=== PATIENT | female | born 1990 | race Caucasian/White ===

== ENCOUNTER 2021-01-01 04:36 | Inpatient (IN) ==
[2021-01-01] MEDS ORDERED: Buffered Lidocaine 1% SYRIN 1 ml INTRADERM ONE (05:09)
[2021-01-01] MEDS ORDERED: Lactated Ringers 1000 ml BAG 1,000 ML IV ONE ×2 (05:09→12:59)
[2021-01-01 05:54] LABS: Urine Benzodiazepine Screen None Detected (None Detect); Urine Cannabinoids Screen None Detected (None Detect); Urine Opiates Screen None Detected (None Detect)
[2021-01-01] MEDS ORDERED: Lactated Ringers 1000 ml BAG 1,000 ML IV SCH ×3 (06:00→21:00)
[2021-01-01 06:07] LABS: ABS Basophils 0.1 10^3/ul (0-0.2); ABS Lymphocytes 1.7 10^3/ul (1.0-4.8); ABS Monocytes 0.8 10^3/ul (0-0.8); ABS Neutrophils 17.1 10^3/ul (1.5-7.7); Eosinophil % 0.2 %; Hematocrit 42 % (35-47); Hemoglobin 14.5 g/dL (12.0-16.0); Lymphocyte % 8.9 %; Mean Corpuscular HGB Conc 35 g/dL (31-36); Mean Corpuscular Hemoglobin 30 pg (27-31); Mean Corpuscular Volume 88 fL (80-97); Mean Platelet Volume 10.8 fL (7.4-10.4); Platelet Count 197 10^3/uL (150-450); Red Blood Count 4.78 10^6 /uL (3.70-4.87); Red Cell Distribution Width 13 % (10-15); White Blood Count 19.7 10^3/uL (3.5-10.8)
[2021-01-01 06:24] LABS: Albumin/Globulin Ratio 1.3 (1-3); Calcium 9.4 mg/dL (8.6-10.3); EGFR African American 137.7 (>60); EGFR Non-African American 113.8 (>60); Globulin 3.2 g/dL (2-4); Potassium 3.7 mmol/L (3.5-5.0); Total Bilirubin 0.3 mg/dL (0.2-1.0); Total Protein 7.2 g/dL (6.4-8.9)
[2021-01-01] MEDS ORDERED: Morphine 10 MG/ML VIAL (1 ml) IV ONE (08:56)
[2021-01-01] MEDS ORDERED: Promethazine INJ(RESTRICTED) 25 MG/ML 1 ml VIAL IV ONE (08:57)
[2021-01-01] MEDS ORDERED: OBEPIDURAL 250 ML EPIDURAL ONE (12:15)
[2021-01-01] MEDS ORDERED: Bupivacaine 0.25% SDV PF 10 ML VIAL INJ ONE (12:21)
[2021-01-01] MEDS ORDERED: Phenylephrine 40 mcg/mL 10mL (400mcg) SYRINGE IV PUSH PRN ×2 (12:59)
[2021-01-01] MEDS ORDERED: EPHEDrine (Pressors) 50 MG/ML VIAL IV PUSH PRN ×2 (12:59)
[2021-01-01] MEDS ORDERED: Sodium Citrate/Citric Acid LIQ 15 ML UDC PO PRN (12:59)
[2021-01-01] MEDS ORDERED: OBEPIDURAL 250 ML EPIDURAL SCH (13:00)
[2021-01-01] MEDS ORDERED: Oxytocin in LR 20 UNITS/1,000 ML BAG IVPB ONE (15:57)
[2021-01-01] MEDS ORDERED: Oxytocin in LR 20 UNITS/1,000 ML BAG IVPB SCH ×2 (16:00→21:00)
[2021-01-01] MEDS ORDERED: Dibucaine 1% OINT 28.35 GM TUBE ONE (20:17)
[2021-01-01] MEDS ORDERED: Witch Hazel PAD JAR ONE (20:18)
[2021-01-01] MEDS ORDERED: Dibucaine 1% OINT 28.35 GM TUBE PR PRN (20:49)
[2021-01-01] MEDS ORDERED: Witch Hazel PAD JAR TOPICAL PRN (20:49)
[2021-01-01] MEDS ORDERED: Glycerin ADULT 2.4 gm SUPP PR PRN (20:49)
[2021-01-02 06:55] LABS: ABS Basophils 0.1 10^3/ul (0-0.2); ABS Monocytes 0.7 10^3/ul (0-0.8); ABS Neutrophils 13.8 10^3/ul (1.5-7.7); Eosinophil % 0.3 %; Hematocrit 35 % (35-47); Hemoglobin 11.9 g/dL (12.0-16.0); Mean Corpuscular HGB Conc 34 g/dL (31-36); Mean Corpuscular Hemoglobin 31 pg (27-31); Mean Corpuscular Volume 90 fL (80-97); Mean Platelet Volume 10.4 fL (7.4-10.4); Platelet Count 157 10^3/uL (150-450); Red Blood Count 3.86 10^6 /uL (3.70-4.87); Red Cell Distribution Width 13 % (10-15); White Blood Count 16.6 10^3/uL (3.5-10.8)
[2021-01-04 07:25] VITALS: BP 130/88
== END 2021-01-04 15:00 | disposition home or self-care (01) | DRG 560 ==
LOC: MCHOBOUT 04:36 → MCHOB 05:10
PROVIDERS: ADMIT Midwife; ATTEND Midwife